=== PATIENT | female | born 1970 | race American Indian/Alaskan Native ===

== ENCOUNTER 2020-06-30 09:01 | Emergency (ER) | payer BC ==
[2020-06-30 17:34] VITALS: BP 152/74
== END 2020-06-30 17:33 | disposition home or self-care (01) ==
LOC: ED 09:01
DX: R11.2 Nausea with vomiting, unspecified (principal); R10.9 Unspecified abdominal pain; I10 Essential (primary) hypertension; F12.10 Cannabis abuse, uncomplicated; Z98.890 Other specified postprocedural states; Z79.899 Other long term (current) drug therapy; Z88.2 Allergy status to sulfonamides; Z88.0 Allergy status to penicillin; Z88.8 Allergy status to other drugs, medicaments and biological substances
CPT/HCPCS: 36415; 74177; 80053; 81001; 81025; 83690; 85025; 96361; 96374; 96375; 99284; J1630; J2405; J7030; Q9967

== ENCOUNTER 2020-07-02 07:49 | Emergency (ER) | payer BC ==
--- NOTE | 2020-07-02 08:52 | Event Note ---
ED Screening Note Date of service: 07/02/20 Time: 08:50 ED Screening Note: Patient presents to the ER today with complaints of nausea and vomiting. Patient symptoms started this past Sunday around 12 AM. She states that the time she was having nausea vomiting diarrhea. She was seen here for her symptoms. She states that she had a CT scan, labs and IV fluids. She states she was not aware the diagnosis was but she was told that her potassium was low. She was prescribed Zofran and Phenergan suppositories. She states that she has been taking the Zofran and Phenergan but is not helping her nausea or vomiting. She states that her diarrhea has stopped. She reports abdominal discomfort mainly from the nausea and vomiting. She reports decreased appetite. Past medical history significant for hypertension, tobacco use, marijuana use and she states she is a social drinker. This initial assessment/diagnostic orders/clinical plan/treatment(s) is/are subject to change based on patients health status, clinical progression and re- assessment by fellow clinical providers in the ED. Further treatment and workup at subsequent clinical providers discretion. Patient/guardian urged not to elope from the ED as their condition may be serious if not clinically assessed and managed. Initial orders include: Abdominal pain order set.
[2020-07-02 09:18] LABS: Bacteria,Urine 1+ /HPF (Negative); Bilirubin,Urine NEG (Negative); Blood,Urine SM (Negative); Color,Urine Amber (Yellow); Mucus,Urine 3+ /HPF
[2020-07-02 09:27] LABS: Basophils # (Auto) 0.1 K/mm3 (0.0-0.1); Basophils % (Auto) 0.5 % (0.0-1.8); Hematocrit 43.6 % (30.3-42.9); Hemoglobin 15.4 gm/dl (10.1-14.3); Lymphocytes # (Auto) 1.9 K/mm3 (1.2-5.4); Lymphocytes % (Auto) 14.7 % (13.4-35.0); Mean Corpuscular HGB Conc 35 % (30-34); Mean Corpuscular Volume 106 fl (79-97); Monocytes % (Auto) 8.1 % (0.0-7.3); Platelet Count 178 K/mm3 (140-440); Red Blood Count 4.11 M/mm3 (3.65-5.03); Red Cell Distribution Width 14.2 % (13.2-15.2)
[2020-07-02 09:51] LABS: Alanine Aminotransferase 22 units/L (7-56); Albumin 4.7 g/dL (3.9-5); BUN/Creatinine Ratio 14; Blood Urea Nitrogen 13 mg/dL (7-17); Calcium 9.2 mg/dL (8.4-10.2); Hemolysis Index 15
[2020-07-02] MEDS ORDERED: SODIUM CHLORIDE 0.9% 1000 ML 1,000 ML IV ONE (11:35)
[2020-07-02] MEDS ORDERED: ONDANSETRON 4 MG/2 ML INJ IV ONE (11:36)
[2020-07-02] MEDS ORDERED: PANTOPRAZOLE 40 MG INJ IV ONE (11:36)
--- NOTE | 2020-07-02 11:43 | Emergency Department Report ---
ED N/V/D HPI - General Chief complaint: Weakness Stated complaint: WEAK Time Seen by Provider: 07/02/20 08:32 Source: patient Mode of arrival: Wheelchair Limitations: No Limitations - History of Present Illness Initial comments: CC: "This keeps happening." HPI: This is a 49 yo female with hx of thyroid disease s/p thyroidectomy, paroxysmal atrial fibrillation, daily marijuana use who presents with vomiting and diarrhea for several days. Patient was evaluated at this hospital 2 days ago. She was prescribed Zofran and promethazine suppositories. She still has persistent vomiting. Patient has had recurrent symptoms for several years. She has not been evaluated by specialist. CT abdomen pelvis with contrast obtained 2 days ago did not reveal any acute abnormalities. Patient states that she has had several CT scans of the abdomen over the years. All have been normal according to her report. Past surgical history includes hysterectomy. Ms. Jenkins vomited several times today feeling for emesis bag. MD complaint: nausea, vomiting, diarrhea -: days(s) (3 to 4 days) Description of Vomiting: food contents Description of Diarrhea: water Associated Abdominal Pain: No Radiation: none Severity: moderate Consistency: constant Improves with: none Worsens with: none Context: other (Recurrent symptoms history of marijuana use) Associated Symptoms: weakness - Related Data Previous Rx's Medication Instructions Recorded Last Taken Type Ondansetron [Zofran Odt] 4 mg PO Q8HR PRN #10 tab.rapdis 06/30/20 Unknown Rx Promethazine [Phenergan] 12.5 mg CO Q6H PRN #9 supp.rect 06/30/20 Unknown Rx Ondansetron [Zofran Odt] 4 mg PO Q8HR PRN #10 tab.rapdis 07/02/20 Unknown Rx Promethazine [Phenergan] 25 mg PO Q6HR PRN #10 tab 07/02/20 Unknown Rx Allergies Allergy/AdvReac Type Severity Reaction Status Date / Time cephalexin [From Keflex] Allergy Unknown Verified 06/30/20 09:11 Penicillins Allergy Unknown Verified 06/30/20 09:10 Sulfa (Sulfonamide Allergy Unknown Verified 06/30/20 09:11 Antibiotics) ED Review of Systems ROS: Stated complaint: WEAK Other details as noted in HPI Comment: All other systems reviewed and negative Constitutional: denies: chills, fever Respiratory: denies: cough Gastrointestinal: nausea, vomiting, diarrhea. denies: abdominal pain ED Past Medical Hx - Past Medical History Previous Medical History?: Yes Hx Hypertension: Yes Additional medical history: Afib, hyperthyroidism; n/v ? etio - Surgical History Past Surgical History?: Yes Additional Surgical History: thyroid surgery, hysterectomy - Social History Smoking Status: Never Smoker Substance Use Type: Marijuana - Medications Home Medications: Home Medications Medication Instructions Recorded Confirmed Last Taken Type Ondansetron [Zofran Odt] 4 mg PO Q8HR PRN #10 tab.rapdis 06/30/20 Unknown Rx Promethazine [Phenergan] 12.5 mg CO Q6H PRN #9 supp.rect 06/30/20 Unknown Rx Ondansetron [Zofran Odt] 4 mg PO Q8HR PRN #10 tab.rapdis 07/02/20 Unknown Rx Promethazine [Phenergan] 25 mg PO Q6HR PRN #10 tab 07/02/20 Unknown Rx ED Physical Exam - General Limitations: No Limitations General appearance: alert, in no apparent distress - Head Head exam: Present: atraumatic, normocephalic - Eye Eye exam: Present: normal appearance - ENT ENT exam: Present: mucous membranes moist - Neck Neck exam: Present: normal inspection, full ROM - Respiratory Respiratory exam: Present: normal lung sounds bilaterally. Absent: respiratory distress, wheezes, rales, rhonchi - Cardiovascular Cardiovascular Exam: Present: regular rate, normal rhythm, normal heart sounds. Absent: systolic murmur, diastolic murmur, rubs, gallop - GI/Abdominal GI/Abdominal exam: Present: soft, normal bowel sounds. Absent: distended, tenderness, guarding, rebound - Extremities Exam Extremities exam: Present: normal inspection - Neurological Exam Neurological exam: Present: alert, oriented X3 - Psychiatric Psychiatric exam: Present: normal affect, normal mood - Skin Skin exam: Present: warm, dry, intact, normal color. Absent: rash ED Course Vital Signs 07/02/20 07/02/20 08:08 13:03 Temperature 99.2 F Pulse Rate 68 Respiratory 20 17 Rate Blood Pressure 164/78 O2 Sat by Pulse 100 Oximetry ED Medical Decision Making - Lab Data Result diagrams: 07/02/20 08:58 07/02/20 08:58 - Medical Decision Making Cannabinoid hyperemesis syndrome with dehydration. Volume contraction noted with elevated hemoglobin hematocrit. Patient also has hypokalemia. Urinalysis contaminated. No indication of UTI strongly recommended cessation of marijuana use. Prescribed Zofran and promethazine. Critical care attestation.: If time is entered above; I have spent that time in minutes in the direct care of this critically ill patient, excluding procedure time. ED Disposition Clinical Impression: Cannabinoid hyperemesis syndrome, Dehydration Disposition: DC- TO HOME OR SELFCARE Is pt being admited?: No Does the pt Need Aspirin: No Condition: Stable Instructions: Dehydration, Adult, [id number] Prescriptions: Promethazine [Phenergan] 25 mg PO Q6HR PRN #10 tab PRN Reason: Nausea Ondansetron [Zofran Odt] 4 mg PO Q8HR PRN #10 tab.rapdis PRN Reason: Nausea Referrals: SHADE HAWK MD [Staff Physician] - 3-5 Days
[2020-07-02 14:04] VITALS: BP 162/90
== END 2020-07-02 14:08 | disposition home or self-care (01) ==
LOC: ED 07:49
DX: E86.0 Dehydration (principal); R11.10 Vomiting, unspecified; I10 Essential (primary) hypertension; F12.10 Cannabis abuse, uncomplicated; Z90.710 Acquired absence of both cervix and uterus; Z98.890 Other specified postprocedural states; Z79.899 Other long term (current) drug therapy; Z88.0 Allergy status to penicillin; Z88.2 Allergy status to sulfonamides; Z88.8 Allergy status to other drugs, medicaments and biological substances
CPT/HCPCS: 36415; 80053; 81001; 83690; 83735; 85025; 96361; 96374; 96375; 99283; C9113; J2405; J7030